=== PATIENT | female | born 1990 | race Caucasian/White ===

== ENCOUNTER 2017-02-12 17:27 | Outpatient (CLI) | payer OTHER ==
[~2017-02-12] VITALS: Ht 152.4 cm; Wt 55.6 kg
[2017-02-12 17:56] VITALS: BP 103/60; RESP 18; Ht 152.4 cm; Wt 55.6 kg
[2017-02-12] MEDS ORDERED: PREN-93 PO (17:59)
--- NOTE | 2017-02-12 20:04 | RADRPT ---
PROCEDURE: US OB biophysical profile. CLINICAL INDICATION: evaluation TECHNIQUE: Multiple sonographic images of the pelvis were obtained. The images were reviewed on a PACS workstation. COMPARISON: No prior studies are available for comparison. FINDINGS: There is a single viable intrauterine gestation. Cardiac activity is present with 148 beats per min tay. There is a breech presentation. The placenta is anterior. There is no evidence of placental abruption. There is a normal amount of amniotic fluid with an MARCELLE = 12.5 cm. Biophysical profile: movement 2/2 tone 2/2. breathing 2/2 MARCELLE 2/2 Total 03/10 RPTAT: AA . IMPRESSION: Normal biophysical profile. Breech presentation. Physician Claudette Date Time Electronically viewed and signed by Physician Claudette on 02/12/2017 20:03 /
[2017-02-12 21:00] LABS: URINE BLOOD (Dip) POC Negative (NEGATIVE)
--- NOTE | 2017-02-12 22:46 | PN ---
Triage Information Date/Time 02/13/2240 Weeks of Gestation 27w3d : 3 Para: 1 Diabetes: none Hypertention: none Objective Vital Signs Date Time Temp Pulse Resp B/P Pulse Ox O2 Delivery O2 Flow Rate FiO2 02/12/17 17:56 98.3 18 103/60 Room Air Heart Rate: 140's Contractions: None Exam UA +++ leukocytes trace protein on nitrofurantoin after tx with ampicillin sine thursday Results/Medications Results 24 hrs Laboratory Tests Test 02/12/17 21:06 Bedside Urine pH (LAB) 7.0 Bedside Urine Protein (LAB) Trace H Bedside Urine Glucose (UA) Negative Bedside Urine Ketones (LAB) Negative Bedside Urine Blood Negative Bedside Urine Nitrite (LAB) Negative Bedside Urine Leukocyte Esterase (L 3+ H Medications nitrofurantoin Imaging Results BPP 03/10 MARCELLE 12.5 Assessment/Plan IUP 27w3d FM ok f/u at [facility] rt KRISTAL Donaldson MD Feb 12, 2017 22:46
[2017-02-13 00:38] LABS: ADD UMIC YES; UR AMORPHOUS CRYSTAL FEW /HPF (NONE SEEN); UR ASCORBIC ACID NEGATIVE (NEGATIVE); UR BACTERIA MANY /HPF (NONE SEEN); UR BILIRUBIN (Dip) NEGATIVE (NEGATIVE); UR BLOOD (Dip) NEGATIVE (NEGATIVE); UR CLARITY CLOUDY (CLEAR); UR COLOR YELLOW (YELLOW); UR GLUCOSE (Dip) NEGATIVE (NEGATIVE); UR KETONES (Dip) NEGATIVE (NEGATIVE); UR LEUKOCYTE ESTERASE (Dip) 3+ Leu/ul (NEGATIVE); UR NITRITE (Dip) NEGATIVE (NEGATIVE); UR RBC 14 /HPF (0-5); UR SPECIFIC GRAVITY (Dip) 1.013 (1.003-1.030); UR SQUAMOUS EPITHELIAL CELL MODERATE /HPF (FEW); UR TOTAL PROTEIN (Dip) NEGATIVE (NEGATIVE); UR UROBILINOGEN (Dip) NEGATIVE (NEGATIVE)
--- NOTE | 2017-02-13 05:11 | TRIAGE ---
OB Triage Datetime Report Generated by CPN: 02/13/2017 05:10 Datetime: 02/12/2017 21:36 Stage of : OB Triage Pain Assessment Pain Scale: 0 Pain Presence: None/Denies Pain Type: N/A Datetime: 02/12/2017 21:00 Stage of : OB Triage Labor Evaluation Frequency: Irregular with irritability Monitor Mode: External Duration (sec)2399: 20-80 Quality: Mild Pattern: Normal: <= 5 Contractions in 10 Minutes Resting Tone [place]: Relaxed Heart Rate FHR Baseline Rate: 145 Monitor Mode: External US FHR Baseline Changes: No Baseline Change Variability: Moderate 6-25 bpm Accelerations: 15X15 Decelerations: None Category: Category I Datetime: 02/12/2017 20:52 Stage of : OB Triage Datetime: 02/12/2017 20:39 Stage of : OB Triage Datetime: 02/12/2017 20:33 Stage of : OB Triage Datetime: 02/12/2017 20:30 Stage of : OB Triage Datetime: 02/12/2017 20:07 Stage of : OB Triage Assessment Type: Triage Maternal Assessment Level of Consciousness: Fully Conscious DTR's/Clonus: DTRs 2+; No Clonus Headache: Denies Blurred Vision: No Respiratory Effort: Unlabored; Regular Rhythm; Equal Expansion Breath Sounds, Left: Clear and Equal Breath Sounds, Right: Clear and Equal Nausea/Vomiting: Denies RUQ Epigastric Pain: Denies Lower Extremities Edema: None Degree: None Upper Extremities Edema: None Degree: None Facial Edema: None Fall Risk Assessment History of Falling: (0) No Secondary Diagnosis: (0) No Ambulatory Aid: (0) Bedrest/Nurse Assist IV Therapy: (0) No Gait: (0) Normal/Bedrest/Immobile Mental Status: (0) Oriented to Own Ability Fall Score: 0 Fall Risk Score Definition: No Risk: No action required Monitor Mode: Palpation Resting Tone [place]: Relaxed Contraction Comments: Abdomen soft on palpation Pain Assessment Pain Scale: 0 Pain Presence: None/Denies Pain Type: N/A Datetime: 02/12/2017 20:00 Stage of : OB Triage Labor Evaluation Frequency: Irregular with irritability Monitor Mode: External Duration (sec)9049: 20-70 Quality: Mild Pattern: Normal: <= 5 Contractions in 10 Minutes Resting Tone [place]: Relaxed Heart Rate FHR Baseline Rate: 145 Monitor Mode: External US Variability: Moderate 6-25 bpm Accelerations: 15X15 Decelerations: Variable Category: Category II Datetime: 02/12/2017 19:03 EGA: 27.3 Datetime: 02/12/2017 19:02 Labor Evaluation Frequency: IRREG Monitor Mode: External Duration (sec)2399: 40-70 Pattern: Normal: <= 5 Contractions in 10 Minutes Resting Tone [place]: Relaxed Heart Rate FHR Baseline Rate: 140 Monitor Mode: External US Variability: Moderate 6-25 bpm Accelerations: 15X15 Decelerations: None Category: Category I Datetime: 02/12/2017 18:30 Labor Evaluation Frequency: IRREG Monitor Mode: External Duration (sec)2399: 60-90 Pattern: Normal: <= 5 Contractions in 10 Minutes Resting Tone [place]: Relaxed Heart Rate FHR Baseline Rate: 140 Monitor Mode: External US FHR Baseline Changes: No Baseline Change Variability: Moderate 6-25 bpm Accelerations: 15X15 Decelerations: None Category: Category I Datetime: 02/12/2017 17:45 Time of Arrival: 02/12/2017 17:10 Arrived By: Ambulatory Arrived From: Home Chief Complaint: DECREASED MOVEMENT SINCE YESTERDAY AT 1900 Movement: Decreased Rupture of Membranes: Denies Vaginal Bleeding: None Vaginal Discharge: Denies Recent Sexual Intercouse: Denies Abdominal Trauma: Not Applicable Additional Patient Complaints: Pt currently taking Macrobid for UTI Time Provider Notified: 02/12/2017 19:04 Provider Notified: DR. PAT Initial Plan: TOCO/ US. BPP Datetime: 02/12/2017 17:42 Pain Assessment Pain Scale: 3 Pain Presence: Intermittent Pain Type: Pressure Pain Location: Abdomen Pain Relief Measures: Comfort Measures Datetime: 02/12/2017 17:39 Labor Evaluation Frequency: 0 Monitor Mode: External Pattern: Normal: <= 5 Contractions in 10 Minutes Resting Tone [place]: Relaxed Heart Rate FHR Baseline Rate: 150 Monitor Mode: External US Variability: Moderate 6-25 bpm Accelerations: 15X15 Decelerations: None Category: Category I
== END 2017-02-12 21:40 | disposition home or self-care (01) ==
LOC: OBT 17:27 → L-D 17:28 → OBT 21:40
PROVIDERS: ATTEND Obstetrics & Gynecology
DX: O36.8120 Decreased fetal movements, second trimester, not applicable or unspecified (principal); Z3A.27 27 weeks gestation of pregnancy
CPT/HCPCS: 76818; 81001; 81003; 87086

== ENCOUNTER 2017-04-14 14:47 | Inpatient (IN) | payer OTHER ==
[~2017-04-14] VITALS: Ht 147.3 cm; Wt 57.4 kg
[~2017-04-14 14:47] MED LIST: PREN-93 PO
[2017-04-14] MEDS ORDERED: CALC600T11 PO (15:08)
[2017-04-14] MEDS ORDERED: FOLI-49 PO (15:08)
[2017-04-14] MEDS ORDERED: FER325 PO (15:08)
[2017-04-14 15:09] VITALS: BP 94/57; PULSE 97; RESP 18; Ht 147.3 cm; Wt 57.4 kg
[2017-04-14] MEDS ORDERED: LACTATED RINGER'S 1,000 ML IV* SCH (16:00)
[2017-04-14 16:39] LABS: ADD UMIC YES; UR ASCORBIC ACID 40 mg/dL (NEGATIVE); UR BACTERIA FEW /HPF (NONE SEEN); UR BILIRUBIN (Dip) NEGATIVE (NEGATIVE); UR BLOOD (Dip) NEGATIVE (NEGATIVE); UR CLARITY CLOUDY (CLEAR); UR COLOR AMBER (YELLOW); UR GLUCOSE (Dip) NEGATIVE (NEGATIVE); UR KETONES (Dip) NEGATIVE (NEGATIVE); UR LEUKOCYTE ESTERASE (Dip) 3+ Leu/ul (NEGATIVE); UR MUCUS FEW /HPF (NONE SEEN); UR NITRITE (Dip) NEGATIVE (NEGATIVE); UR RBC 2 /HPF (0-5); UR SPECIFIC GRAVITY (Dip) 1.023 (1.003-1.030); UR SQUAMOUS EPITHELIAL CELL MODERATE /HPF (FEW); UR TOTAL PROTEIN (Dip) 1+ mg/dl (NEGATIVE); UR UROBILINOGEN (Dip) 1+ mg/dL (NEGATIVE)
--- NOTE | 2017-04-14 18:50 | TRIAGE ---
OB Triage Datetime Report Generated by CPN: 04/14/2017 18:50 Datetime: 04/14/2017 18:45 Vaginal Exam Dilatation (cms): 0.0 Datetime: 04/14/2017 18:00 Stage of : OB Triage Maternal Assessment Level of Consciousness: Fully Conscious Labor Evaluation Frequency: 8uc/hr Monitor Mode: External Duration (sec)2399: 60-120 Quality: Mild Resting Tone [place]: Relaxed Heart Rate FHR Baseline Rate: 150 Monitor Mode: External US Variability: Moderate 6-25 bpm Accelerations: 15X15 Decelerations: None Pain Assessment Pain Scale: 0 Pain Goal: 3 Membrane Status: Intact Vaginal Bleeding: None Datetime: 04/14/2017 17:00 Stage of : OB Triage Maternal Assessment Level of Consciousness: Fully Conscious Labor Evaluation Frequency: 5uc/hr Monitor Mode: External Duration (sec)2399: 80-110 Quality: Mild Resting Tone [place]: Relaxed Heart Rate FHR Baseline Rate: 140 Monitor Mode: External US Variability: Moderate 6-25 bpm Accelerations: 15X15 Decelerations: None Pain Assessment Pain Scale: 0 Pain Goal: 3 Membrane Status: Intact Vaginal Bleeding: None Datetime: 04/14/2017 16:00 Stage of : OB Triage Maternal Assessment Level of Consciousness: Fully Conscious Labor Evaluation Frequency: 4uc/hr Monitor Mode: External Duration (sec)2399: 80-120 Quality: Mild Resting Tone [place]: Relaxed Heart Rate FHR Baseline Rate: 140 Monitor Mode: External US Variability: Moderate 6-25 bpm Accelerations: 15X15 Decelerations: None Category: Category I Pain Assessment Pain Scale: 0 Pain Goal: 3 Membrane Status: Intact Vaginal Bleeding: None Datetime: 04/14/2017 15:35 Vaginal Exam Dilatation (cms): 0.0 Datetime: 04/14/2017 15:05 Assessment Type: Triage Maternal Assessment Level of Consciousness: Fully Conscious DTR's/Clonus: DTRs 2+; No Clonus Headache: Denies Blurred Vision: No Respiratory Effort: Unlabored; Regular Rhythm; Equal Expansion Breath Sounds, Left: Clear and Equal Breath Sounds, Right: Clear and Equal Nausea/Vomiting: Denies RUQ Epigastric Pain: Denies Lower Extremities Edema: None Degree: None Upper Extremities Edema: None Degree: None Facial Edema: None Fall Risk Assessment History of Falling: (0) No Secondary Diagnosis: (0) No Ambulatory Aid: (0) Bedrest/Nurse Assist IV Therapy: (0) No Gait: (0) Normal/Bedrest/Immobile Mental Status: (0) Oriented to Own Ability Fall Score: 0 Fall Risk Score Definition: No Risk: No action required Datetime: 04/14/2017 15:04 Time of Arrival: 04/14/2017 14:41 EGA: 36.1 Arrived By: Ambulatory Arrived From: Home Chief Complaint: PT HERE C/O UC'S Movement: Present Contractions: Denies/Absent Rupture of Membranes: Denies Vaginal Bleeding: None Vaginal Discharge: Denies Recent Sexual Intercouse: Denies Abdominal Trauma: Not Applicable Patient Complaints: Cramping Time Provider Notified: 04/14/2017 15:49 Provider Notified: DELSHAD Initial Plan: EFM/IV HYDRATION/UA Datetime: 04/14/2017 15:01 Monitor Mode: External Monitor Mode: External US Datetime: 02/12/2017 20:07 Fall Score: 0 Fall Risk Score Definition: No Risk: No action required Datetime: 02/12/2017 19:03 EGA: 27.3
--- NOTE | 2017-04-14 18:53 | HP ---
Date/Time of Note Date/Time of Note DATE: 04/14/17 TIME: 18:49 OB - History Hx of Present Chief Complaint: contractions Estimated Due Date: May 11, 2017 : 3 Para: 1 Spontaneous : 1 Therapeutic : 0 Care: Good Care Obstetrical Complications: None Medical Complications: None Past Family/Social History * Past Medical, Surgical, Family and Obstetric Histories reviewed from chart. OB Admission Exam Vital Signs Vital Signs Vital Signs Date Time Temp Pulse Resp B/P Pulse Ox O2 Delivery O2 Flow Rate FiO2 04/14/17 15:09 98.1 97 18 94/57 96 Room Air Physical Exam HEENT: WNL Heart: Rhythm Normal Lungs: Clear, Equal Abdomen: WNL Extremities: Normal Reflexes: Normal Cervical Dilatation: Fingertip Effacement: 50% Station: -1 Membranes: Intact Heart Rate: 130's Accelerations: Accelerations Present Decelerations: No Decelerations Varibility: Moderate Contractions on Admission: < 5 Minutes Apart OB Assessment/Plan Reason for admission: labor Plan: Other Other plan: Admit IV magnesium sulfate IM betamethasone ANTOLIN EDWARDS MD Apr 14, 2017 18:53
[2017-04-14] MEDS ORDERED: MAGNESIUM SULFATE 20 GM/500 ML 500 ML IV SCH (19:39)
[2017-04-14] MEDS ORDERED: LACTATED RINGER'S 1,000 ML IV SCH (19:39)
[2017-04-14] MEDS ORDERED: MAGNESIUM SULFATE 4 GM/100 ML 100 ML IV ONE (20:00)
[2017-04-14] MEDS ORDERED: BETAMET NA PHOS/AC(6 MG/ML) 5ML INJ IM SCH (20:00)
[2017-04-14] MEDS ORDERED: morphine SULFATE/PF (10 MG/10 ML) INJ ONE (22:47)
[2017-04-14] MEDS ORDERED: FENTAnyl 50 MCG/ML VIAL ONE (22:47)
[2017-04-14] MEDS ORDERED: CITRIC ACID/NA CITRATE 30 ML CUP PO ONE (23:00)
[2017-04-14] MEDS ORDERED: FAMOTIDINE 20 MG INJ IV ONE (23:00)
[2017-04-14] MEDS ORDERED: CEFAZOLIN 2 GM/50 ML (PMX) 50 ML IV SCH (23:00)
[2017-04-14 23:12] LABS: BASOPHILS % 0.3 % (0.0-2.0); EOSINOPHILS % 0.1 % (0.0-7.0); HEMATOCRIT 41.7 % (37.0-47.0); HEMOGLOBIN 14.4 g/dl (12.0-16.0); LYMPHOCYTES # 1.7 10^3/ul (0.8-2.9); LYMPHOCYTES % 17.5 % (15.0-51.0); MEAN CORPUSCULAR HEMOGLOBIN 31.5 pg (29.0-33.0); MEAN CORPUSCULAR HGB CONC 34.5 g/dl (32.0-37.0); MEAN CORPUSCULAR VOLUME 91.2 fl (82.0-101.0); MEAN PLATELET VOLUME 10.8 fl (7.4-10.4); MONOCYTE # 0.3 10^3/ul (0.3-0.9); NEUTROPHILS % 78.3 % (39.0-77.0); PLATELET COUNT 211 10^3/UL (140-415); RED BLOOD COUNT 4.57 10^6/ul (4.20-5.40); RED CELL DISTRIBUTION WIDTH 13.3 % (11.5-14.5); WHITE BLOOD COUNT 9.5 10^3/ul (4.8-10.8)
[2017-04-14 23:23] LABS: INR 0.88; PROTIME 11.9 Sec (12.2-14.2); PT RATIO 0.9
[2017-04-14 23:24] LABS: PARTIAL THROMBOPLASTIN TIME 25.8 Sec (25.0-35.0)
--- NOTE | 2017-04-14 23:47 | QN ---
Documentation Comment Patient continues to have contractions which are increasing in frequency and intensity despite being on magnesium sulfate. Patient is for delivery by repeat . Risks, benefits and alternatives were explained to the patient who stated she understood and gave informe consent for the procedure. ANTOLIN EDWARDS MD Apr 14, 2017 23:47
[2017-04-14] MEDS ORDERED: PHENYLephrine (100 MCG/ML) 5ML SYG ONE (23:59)
[2017-04-15] MEDS ORDERED: DEXAMETHASONE 4 MG/ML 1 ML INJ ONE
[2017-04-15] MEDS ORDERED: NALOXONE (0.4 MG/ML) INJ IV PRN
[2017-04-15] MEDS ORDERED: MEPERIDINE 25 MG INJ IV ONE
[2017-04-15] MEDS ORDERED: ZOLPIDEM 5 MG TAB PO PRN
[2017-04-15] MEDS ORDERED: ONDANSETRON 4 MG INJ IV PRN
[2017-04-15] MEDS ORDERED: HYDROmorphONE 1 MG/ML SYG IV PRN ×2
[2017-04-15] MEDS ORDERED: DIPHENHYDRAMINE 50 MG INJ IV PRN
[2017-04-15] MEDS ORDERED: KETOROLAC 30 MG INJ IV PRN
[2017-04-15] MEDS ORDERED: ONDANSETRON 4 MG INJ ONE (00:01)
[2017-04-15] MEDS ORDERED: OXYTOCIN 30 UNITS/LR 500 ML IV ONE (00:55)
--- NOTE | 2017-04-15 01:32 | SIPON ---
Date/Time of Note Date/Time of Note DATE: 04/15/17 TIME: 01:29 Operative Report Preoperative Diagnosis 36 weeks and 5 days previous c/s, labor contractions , voluntary sterilization Postoperative Diagnosis Same Operation/Procedure Performed Repeat c/s and BTL Surgeon: ANTOLIN EDWARDS MD benefits assistant: ADELINA NOBLE M.D. Anesthesia Type: spinal Estimated Blood Loss: other (600 ml) Transfusion Required: no Specimens right and left Fallopian tubes Grafts/Implants: none Complications: no ANTOLIN EDWARDS MD Apr 15, 2017 01:32
--- NOTE | 2017-04-15 02:51 | OPR ---
DATE OF OPERATION: 04/15/2017 PREOPERATIVE DIAGNOSES: 1. at 36 weeks and 5 days with previous section. 2. Labor contractions. 3. Voluntary sterilization. POSTOPERATIVE DIAGNOSES: 1. at 36 weeks and 5 days with previous section. 2. Labor contractions. 3. Voluntary sterilization. OPERATION: Repeat low transverse section and bilateral tubal ligation. SURGEON: Dr. Hernandes. WASH BARREL LEADER: . ANESTHESIA: Spinal. ANESTHESIOLOGIST: Dr. Feng. OPERATIVE PROCEDURE: The patient was taken to the operating room, placed on the operating table. After successful spinal anesthesia was given, the area was prepared and draped in the usual sterile fashion. Spinal anesthesia was tested and was satisfactory. Using scalpel, Pfannenstiel incision was made about 2 fingerbreadths above the symphysis pubis. The incision was carried to the fascia. The fascia was then incised and extended bilaterally with Waddell scissors. Two Polina's were used to separate the fascia from the muscle. The muscle was dissected down the midline down to the peritoneum. The peritoneum was secured with 2 Christine's and incised with Metzenbaum scissors. Using a scalpel, a small transverse incision was made on the lower segment of the uterus. Upon entering the uterine cavity, was inserted to extend the incision bilaterally curved up. The baby was delivered from cephalic presentation. After suctioned and clear of amniotic fluid, the baby was handed off to the team in attendance. Apgars were 8 and 9. The placenta was delivered without difficulty. The uterus was closed with number 1 Monocryl continuous locked. After assuring hemostasis, both ovaries and tubes were inspected and looked normal. The right fallopian tube was grasped with [place] clamp. Using 0 plain suture ligature, a 5-cm segment of the right fallopian tube was doubly ligated. Using Metzenbaum scissors, the portion of the right fallopian tube above the ligated area was excised and sent to pathology. The same procedure was repeated on the left fallopian tube. After assuring hemostasis, the fascia was closed with 0 Vicryl continuous. The fascia was closed with number 1 Vicryl continuous in 2 segments. Subcutaneous tissue was reapproximated with 2-0 plain. The skin was closed with roger. ESTIMATED BLOOD LOSS: Six hundred mL. COUNTS: All counts were correct. Dictated By: Jean Pierre Hernandes MD /hernando/madeleine /Document#: [id number]
[2017-04-15] MEDS: OXYTOCIN 30 UNITS/LR 500 ML IV SCH ×2 (04:32→08:32)
[2017-04-15] MEDS ORDERED: LANOLIN 7 GM TUBE TOP PRN (05:00)
[2017-04-15] MEDS ORDERED: OXYTOCIN 30 UNITS/LR 500 ML IV PRN (05:00)
[2017-04-15] MEDS ORDERED: MISOPROSTOL 200 MCG TAB PR PRN (05:00)
[2017-04-15] MEDS ORDERED: METHYLERGONOVINE 0.2 MG INJ IM PRN (05:00)
[2017-04-15] MEDS ORDERED: CARBOPROST 250 MCG INJ IM PRN (05:00)
[2017-04-15] MEDS: LACTATED RINGER'S 1,000 ML IV SCH ×3 (05:00→21:53)
[2017-04-15 05:30] VITALS: BP 124/64; PULSE 81; RESP 18
[2017-04-15 07:30] VITALS: BP 102/62; PULSE 72; RESP 19
[2017-04-15] MEDS ORDERED: FOLIC ACID 1 MG TAB PO SCH (09:00)
[2017-04-15] MEDS ORDERED: FERROUS SULFATE (EC) 325 MG TAB PO SCH (09:00)
[2017-04-15] MEDS: SENNA/DOCUSATE NA (8.6MG/50MG) TAB PO SCH ×2 (09:26→21:54)
[2017-04-15 11:42] VITALS: BP 112/60; PULSE 80; RESP 19
[2017-04-15 16:21] VITALS: BP 100/56; PULSE 80; RESP 19
[2017-04-15 20:02] VITALS: BP 97/55; PULSE 81; RESP 16
[2017-04-16 04:00] VITALS: BP 97/58; PULSE 76; RESP 20
[2017-04-16] MEDS: LACTATED RINGER'S 1,000 ML IV SCH ×3 (04:32→20:32)
[2017-04-16] MEDS: IBUPROFEN 800 MG TAB PO SCH ×3 (07:10→21:48)
[2017-04-16 08:00] VITALS: BP 111/58; PULSE 74
[2017-04-16] MEDS: SENNA/DOCUSATE NA (8.6MG/50MG) TAB PO SCH ×2 (09:24→21:48)
[2017-04-16 10:25] LABS: BASOPHILS % 0.3 % (0.0-2.0); EOSINOPHILS # 0.1 10^3/ul (0.0-0.5); EOSINOPHILS % 0.4 % (0.0-7.0); HEMATOCRIT 35.1 % (37.0-47.0); HEMOGLOBIN 11.7 g/dl (12.0-16.0); LYMPHOCYTES # 1.5 10^3/ul (0.8-2.9); LYMPHOCYTES % 11.9 % (15.0-51.0); MEAN CORPUSCULAR HEMOGLOBIN 32.1 pg (29.0-33.0); MEAN CORPUSCULAR HGB CONC 33.3 g/dl (32.0-37.0); MEAN CORPUSCULAR VOLUME 96.2 fl (82.0-101.0); MEAN PLATELET VOLUME 10.5 fl (7.4-10.4); MONOCYTE # 0.6 10^3/ul (0.3-0.9); NEUTROPHIL # 10.5 10^3/ul (1.6-7.5); NEUTROPHILS % 81.7 % (39.0-77.0); PLATELET COUNT 211 10^3/UL (140-415); RED BLOOD COUNT 3.65 10^6/ul (4.20-5.40); RED CELL DISTRIBUTION WIDTH 13.3 % (11.5-14.5); WHITE BLOOD COUNT 12.9 10^3/ul (4.8-10.8)
[2017-04-16] MEDS: OXYCODONE/ACETAMINOPHEN (5/325) TAB PO PRN (12:58)
[2017-04-16 16:00] VITALS: BP 109/58; PULSE 66; RESP 18
--- NOTE | 2017-04-16 19:25 | QN ---
Documentation Comment No complaint Afebrile VSS Abdomen soft Stable Continue present care. ANTOLIN EDWARDS MD Apr 16, 2017 19:25
[2017-04-16 19:30] VITALS: BP 103/59; PULSE 77; RESP 19
[2017-04-17] MEDS: OXYCODONE/ACETAMINOPHEN (5/325) TAB PO PRN ×3 (03:33→17:37)
[2017-04-17 04:00] VITALS: BP 107/61; PULSE 68; RESP 18
[2017-04-17] MEDS: IBUPROFEN 800 MG TAB PO SCH ×3 (05:39→22:07)
[2017-04-17 08:00] VITALS: BP 101/58; PULSE 70; RESP 16
[2017-04-17] MEDS: SENNA/DOCUSATE NA (8.6MG/50MG) TAB PO SCH ×2 (09:33→22:07)
[2017-04-17 16:00] VITALS: BP 107/69; PULSE 67; RESP 18
--- NOTE | 2017-04-17 17:37 | DS ---
Date/Time of Note Date/Time of Note DATE: 04/17/17 TIME: 17:36 Obstetrical Discharge Record Final Diagnosis Final Diagnosis: delivered Section Section: Repeat Complications Tocolytics: Magnesium Sulfate Condition on Discharge Physical Assessment Voiding: Yes Bowel Movement: Yes Breast: Soft, non-tender Fundus: Firm Abdomen and Incision: Incision intact Calf Tenderness: No Patient Condition: Stable ANTOLIN EDWARDS MD Apr 17, 2017 17:37
[2017-04-17 20:00] VITALS: BP 106/56; PULSE 74; RESP 18
[2017-04-18 04:05] VITALS: BP 106/52; PULSE 72; RESP 18
[2017-04-18] MEDS: IBUPROFEN 800 MG TAB PO SCH ×2 (05:16→14:00)
[2017-04-18 08:00] VITALS: BP 104/56; PULSE 72; RESP 19
[2017-04-18] MEDS: SENNA/DOCUSATE NA (8.6MG/50MG) TAB PO SCH (08:51)
[2017-04-18] MEDS ORDERED: DIPHTH/TET/ACEL PERTUSS (ADULT) 0.5 ML VIAL IM* ONE (09:00)
== END 2017-04-18 15:20 | disposition home or self-care (01) | DRG 765 ==
LOC: OBT 14:47 → L-D 14:47 → OBT 18:45 → OBG 18:45 → L-D 23:41 → PP1 04-15 05:10
PROVIDERS: ADMIT Obstetrics & Gynecology; ATTEND Obstetrics & Gynecology
PROC: 0UL70ZZ Occlusion of Bilateral Fallopian Tubes, Open Approach (ICD-10-PCS; 2017-04-15)
PROC: 10D00Z1 Extraction of Products of Conception, Low, Open Approach (ICD-10-PCS; principal; 2017-04-15 00:30)
DX: O34.211 Maternal care for low transverse scar from previous cesarean delivery (principal); O60.14X0 Preterm labor third trimester with preterm delivery third trimester, not applicable or unspecified; Z30.2 Encounter for sterilization; Z37.0 Single live birth; Z3A.36 36 weeks gestation of pregnancy
CPT/HCPCS: 36415; 81001; 85025; 85610; 85730; 86592; 86850; 86900; 86901; 88305; 90715; 94760; 96360; 96361; 99464; G0463; J0690; J0702; J1100; J1170; J1885; J2274; J2370; J2405; J2590; J3010; J3475; J7120